=== PATIENT | female | born 1970 ===

== ENCOUNTER 2018-12-21 22:12 | Emergency (ER) | payer SELFPAY ==
[2018-12-21 23:03] VITALS: RESP 20; O2SAT 97
--- NOTE | 2018-12-21 23:46 | C.PDOC ---
History Of Present Illness Patient presents with diffuse body aches worsening over the past week with increasing headache . As per daughter, patient had questionable syncopal episode at home. Denies fever, chills, nausea, or vomiting. Patient recently started on amitiza for chronic constipation. Time Seen by Provider: 12/21/18 23:45 Chief Complaint (Nursing): Headache History Per: Patient History/Exam Limitations: no limitations Onset/Duration Of Symptoms: Days Current Symptoms Are (Timing): Still Present Severity: Moderate Pain Scale Rating Of: 4 Recent travel outside of the [place]: No Past Medical History Reviewed: Historical Data, Nursing Documentation, Vital Signs Vital Signs: Last Vital Signs Temp 98.4 F 12/21/18 22:56 Pulse 98 H 12/21/18 22:56 Resp 20 12/21/18 22:56 BP 144/85 12/21/18 22:56 Pulse Ox 97 12/21/18 22:56 - Medical History PMH: Arthritis Family History: States: No Known Family Hx - Social History Hx Alcohol Use: No Hx Substance Use: No - Immunization History Hx Tetanus Toxoid Vaccination: No Hx Influenza Vaccination: No Hx Pneumococcal Vaccination: No Review Of Systems Constitutional: Negative for: Fever, Chills Cardiovascular: Negative for: Chest Pain, Palpitations Respiratory: Negative for: Cough, Shortness of Breath Gastrointestinal: Negative for: Nausea, Vomiting Musculoskeletal: Positive for: Other (Body aches) Neurological: Positive for: Headache. Negative for: Weakness, Numbness Physical Exam - Physical Exam Appears: Non-toxic Skin: Warm, Dry Head: Normacephalic Eye(s): bilateral: Normal Inspection, PERRL, EOMI Oral Mucosa: Moist Neck: Trachea Midline, No Midline Cervical Tenderness, No Paracervical Tenderness, Supple Chest: Symmetrical, No Tenderness Cardiovascular: Rhythm Regular Respiratory: No Rales, No Rhonchi, No Wheezing Gastrointestinal/Abdominal: Soft, No Tenderness, Distention (Tympanic to percussion) Extremity: Pedal Edema (trace) Neurological/Psych: Oriented x3, Other (No focal deficit) ED Course And Treatment - Laboratory Results Result Diagrams: 12/21/18 23:57 12/21/18 23:57 ECG: Interpreted By Me, Viewed By Me ECG Rhythm: Sinus Rhythm (90), Nonspecific Changes O2 Sat by Pulse Oximetry: 97 (room air) Pulse Ox Interpretation: Normal Progress Note: Blood work, CT head, and urinalysis ordered. Reevaluation Time: 02:11 Reassessment Condition: Improved Disposition Counseled Patient/Family Regarding: Studies Performed, Diagnosis, Need For Followup - Disposition Referrals: Kathleen Dalton MD [Medical Doctor] - Disposition: HOME/ ROUTINE Disposition Time: 23:46 Condition: FAIR Additional Instructions: Por favor regrese si los sntomas recurren. Rasheeda de amitiza Instructions: Adverse Drug Reactions, Adult (DC) Forms: [employer] (Mongolian) Print Language: LIBYAN - Clinical Impression Clinical Impression: Medication side effect - Scribe Statement The provider has reviewed the documentation as recorded by the Scribe Bear Escamilla All medical record entries made by the Scribe were at my direction and pers onally dictated by me. I have reviewed the chart and agree that the record accurately reflects my personal performance of the history, physical exam, medical decision making, and the department course for this patient. I have also personally directed, reviewed, and agree with the discharge instructions and disposition.
[2018-12-22] LABS: BASO % 0.3 % (0.0-2.0); EOS # 0.1 K/uL (0.0-0.7); EOS % 0.6 % (0.0-4.0); HEMOGLOBIN 13.3 g/dL (11.0-16.0); LYMPH # 2.1 K/uL (1.0-4.3); LYMPH % 20.1 % (20.0-40.0); MEAN CELL VOLUME 82.9 fL (81.0-99.0); MEAN CORPUSCULAR HEMOGLOBIN 28.8 pg (27.0-31.0); MEAN CORPUSCULAR HGB CONC 34.7 g/dL (33.0-37.0); MEAN PLATELET VOLUME 7.9 fL (7.2-11.7); MONO # 1.1 K/uL (0.0-0.8); MONO % 11.1 % (0.0-10.0); NEUT % 67.9 % (50.0-75.0); NRBC % 0.1 % (0.0-2.0); RBC 4.61 Mil/uL (3.80-5.20); WHITE BLOOD COUNT 10.3 K/uL (4.8-10.8)
[2018-12-22 00:12] LABS: ALB/GLOB RATIO 1.2 (1.0-2.1); ALBUMIN 4.5 g/dL (3.5-5.0); ALT/SGPT 28 U/L (9-52); AST/SGOT 36 U/L (14-36); BLOOD UREA NITROGEN 6 mg/dL (7-17); CALCIUM 9.1 mg/dl (8.6-10.4); GFR NON-AFRICAN AMERICAN > 60; LIPASE 74 U/L (23-300)
[2018-12-22 00:41] LABS: HCG,QUALITATIVE URINE NEGATIVE (NEGATIVE); SQUAMOUS EPITHIAL 4 /hpf (0-5); URINE BACTERIA MOD (<OCC); URINE BILIRUBIN NEGATIVE (NEGATIVE); URINE BLOOD NEGATIVE (NEGATIVE); URINE CLARITY Clear (Clear); URINE COLOR Yellow (YELLOW); URINE GLUCOSE (UA) NORMAL (Normal); URINE LEUKOCYTE ESTERASE TRACE Leu/uL (Negative); URINE PROTEIN NEGATIVE (NEGATIVE); URINE UROBILINOGEN NORMAL mg/dL (0.2-1.0)
[2018-12-22 00:56] LABS: VENOUS BLOOD GAS BASE EXCESS 0.5 mmol/L (0.0-2.0); VENOUS BLOOD GAS PCO2 44 mmHg (40-60); VENOUS BLOOD GAS PO2 26 mm/Hg (30-55); VENOUS BLOOD PH 7.38 (7.32-7.43)
[2018-12-22 01:20] VITALS: BP 122/70; PULSE 88; TEMP 99
--- NOTE | 2018-12-22 11:51 | CT ---
Date of service: 12/22/2018 PROCEDURE: CT HEAD WITHOUT CONTRAST. HISTORY: syncope COMPARISON: None available. TECHNIQUE: Axial computed tomography images were obtained through the head/brain without intravenous contrast. Radiation dose: Total exam DLP = 898.86 mGy-cm. This CT exam was performed using one or more of the following dose reduction techniques: Automated exposure control, adjustment of the mA and/or kV according to patient size, and/or use of iterative reconstruction technique. FINDINGS: HEMORRHAGE: No intracranial hemorrhage. BRAIN: No mass effect or edema. No atrophy or chronic microvascular ischemic changes. VENTRICLES: Unremarkable. No hydrocephalus. CALVARIUM: Unremarkable. PARANASAL SINUSES: Unremarkable as visualized. No significant inflammatory changes. MASTOID AIR CELLS: Unremarkable as visualized. No inflammatory changes. OTHER FINDINGS: None. IMPRESSION: Normal CT of the Head. No intracranial mass, hemorrhage or evidence of acute infarct. The preliminary findings for this examination were reported by [facility] at 12:53 a.m. on 12/22/2018. There is concurrence of this report with the preliminary findings.
--- NOTE | 2018-12-25 19:41 | CARD ---
APPROVED REPORT Date of service: 12/21/2018 EKG Measurement Heart [id number] CO [id number] [id number] <Conclusion> Normal sinus rhythm Normal ECG
== END 2018-12-22 02:26 | disposition home or self-care (01) ==
LOC: C.ER 22:12
DX: R51 Headache (principal); T47.2X5A Adverse effect of stimulant laxatives, initial encounter
CPT/HCPCS: 70450; 80053; 81001; 82803; 83690; 83735; 84484; 84703; 85025; 85730; 93005; 96374; 99285; J1885

== ENCOUNTER 2018-12-28 11:48 | Outpatient (CLI) | payer OTHER | END 2018-12-28 11:49 | disposition home or self-care (01) | LOC: C.LAB 11:48 | DX: E66.9 Obesity, unspecified (principal); E78.2 Mixed hyperlipidemia; I11.9 Hypertensive heart disease without heart failure; R01.1 Cardiac murmur, unspecified; R42 Dizziness and giddiness; R53.83 Other fatigue; M25.50 Pain in unspecified joint; Z00.00 Encounter for general adult medical examination without abnormal findings ==

== ENCOUNTER 2019-01-12 09:14 | Outpatient (CLI) | payer OTHER | END 2019-01-12 09:15 | disposition home or self-care (01) | LOC: C.USIC 09:14 | DX: R10.9 Unspecified abdominal pain (principal) ==